=== PATIENT | male | born 1990 | race Caucasian/White ===

== ENCOUNTER 2020-05-12 16:34 | Emergency (ER) | payer OTHER ==
[~2020-05-12] VITALS: Ht 172.7 cm; Wt 81.6 kg
[2020-05-12 16:34] VITALS: BP_SYST 158
--- NOTE | 2020-05-12 16:34 | NUR ---
BIB [address] from parking lot at work. Placed in room 01. Placed on air sampling and monitoring, blood pressure machine and pulse oximeter. To gown for exam. Side rails up. Report given to JOSE ANTONIO Handy. Medics gave 2 doses narcan and 2 nitro. Pt awake answering some questions.
--- NOTE | 2020-05-12 16:58 | NUR ---
ER at bedside examining patient.
[2020-05-12] MEDS ORDERED: NACL 0.9% 1,000 ML IV ONE ×2 (17:00→18:00)
--- NOTE | 2020-05-12 17:00 | NUR ---
pt brought by ambulnace due to overdose. found in the car unresposive. narcan was administered by personal lines appraiser. pt alert, awake, stated unable to remember what happen. no s/s of distress. heart rate elevated. on pvc monitor.
[2020-05-12 17:34] LABS: BASOPHILS % (AUTO) 0.2 % (0.0-2.0); EOSINOPHILS % (AUTO) 0.1 % (0.0-4.0); HEMATOCRIT 46.1 % (36-54); HEMOGLOBIN 15.2 g/dL (14.0-18.0); LYMPHOCYTES # (AUTO) 1.7 K/uL (1.0-5.5); LYMPHOCYTES % (AUTO) 11.8 % (20.5-51.5); MEAN CORPUSCULAR HEMOGLOBIN 30 pg (27-31); MEAN CORPUSCULAR HGB CONC 33 % (32-36); MEAN CORPUSCULAR VOLUME 90 fL (79.0-98.0); MONOCYTES # (AUTO) 0.5 K/uL (0.0-1.0); MONOCYTES % (AUTO) 3.4 % (1.7-9.3); NEUTROPHILS % (AUTO) 84.5 % (40.0-70.0); PLATELET COUNT (AUTO) 278 K/uL (130-430); RED BLOOD CELL COUNT(AUTO) 5.12 MIL/uL (4.2-6.2); WHITE BLOOD COUNT (AUTO) 14.2 K/uL (4.8-10.8)
--- NOTE | 2020-05-12 18:00 | NUR ---
left ac iv access, infiltrate. elevated with pillow. # 20 gauge angiocath placed to right hand. Use of asceptic technique. Opsite placed over site. Blood return noted. Flushed with 10 cc of normal saline. No evidence of infiltration noted. Patient tolerated well.ns bolus infusing well.
[2020-05-12 18:18] LABS: ANION GAP 10 (5-15); CHLORIDE 104 mmol/L (98-107); GLUCOSE 185 mg/dL (70-99); POTASSIUM 4.7 mmol/L (3.5-5.1); SODIUM SERUM 142 mmol/L (136-145)
[2020-05-12 18:19] LABS: ACETAMINOPHEN < 1 ug/mL (1-30); ALANINE AMINOTRANSFERASE 57 U/L (12-78); ASPARTATE AMINOTRANSFERASE 29 U/L (10-37); CREATININE 1.65 mg/dL (0.55-1.30); GFR AFRICAN AMERICAN 63 mL/min (>90); TOTAL BILIRUBIN 0.3 mg/dL (0.0-1.0); UREA NITROGEN, BLOOD 15 mg/dL (8-21)
[2020-05-12 18:20] LABS: ALCOHOL, BLOOD < 3 mg/dL (<10)
--- NOTE | 2020-05-12 19:30 | NUR ---
pt contacting boyfriend to be picked up from hospital.
[2020-05-12 19:42] VITALS: BP_SYST 142
== END 2020-05-12 19:42 | disposition home or self-care (01) ==
LOC: SED 16:34
DX: T50.991A Poisoning by other drugs, medicaments and biological substances, accidental (unintentional), initial encounter (principal); R41.82 Altered mental status, unspecified; Y92.89 Other specified places as the place of occurrence of the external cause
CPT/HCPCS: 36415; 80053; 85025; 93005; 96360; 96361; 99284; G0480; G0481; G0482; J7030